=== PATIENT | female | born 1985 | race Caucasian/White ===

== ENCOUNTER 2021-08-24 20:17 | Emergency (ER) | payer SELFPAY ==
[~2021-08-24] VITALS: Ht 152.4 cm; Wt 44.0 kg
[2021-08-24 21:00] VITALS: BP 157/88
== END 2021-08-24 23:30 | disposition left against medical advice (07) ==
LOC: ER 20:17
DX: Z53.21 Procedure and treatment not carried out due to patient leaving prior to being seen by health care provider (principal); R00.0 Tachycardia, unspecified; Z98.890 Other specified postprocedural states
CPT/HCPCS: 93005

== ENCOUNTER 2022-03-20 01:45 | Emergency (ER) | payer SELFPAY | END 2022-03-20 02:15 | disposition left against medical advice (07) | LOC: ER 01:45 | DX: Z53.21 Procedure and treatment not carried out due to patient leaving prior to being seen by health care provider (principal) ==